=== PATIENT | female | born 1955 | race Native Hawaiian/Other Pacific Islander ===

== ENCOUNTER 2017-07-08 10:42 | Emergency (ER) | payer MEDICARE, OTHER ==
[~2017-07-08] VITALS: Ht 157.5 cm; Wt 122.5 kg
[2017-07-08 11:56] LABS: BASOPHILS # (AUTO) 0.1 10^3/uL (0.0-0.1); BASOPHILS % (AUTO) 1 % (0-10); EOSINOPHILS # (AUTO) 0.2 10^3/uL (0.0-0.3); EOSINOPHILS % (AUTO) 3 % (0-10); HEMATOCRIT 32 % (35-52); HEMOGLOBIN 10.7 G/DL (11.5-16.0); LYMPHOCYTES # (AUTO) 1.5 X 10^3 (1.0-4.0); LYMPHOCYTES % (AUTO) 17 % (12-44); MEAN CORPUSCULAR HEMOGLOBIN 32 PG (25-34); MEAN CORPUSCULAR HGB CONC 34 G/DL (32-36); MEAN CORPUSCULAR VOLUME 94 FL (80-99); MEAN PLATELET VOLUME 9.1 FL (7.4-10.4); MONOCYTES # (AUTO) 0.9 X 10^3 (0.0-1.0); MONOCYTES % (AUTO) 11 % (0-12); NEUTROPHILS % (AUTO) 69 % (42-75); PLATELET COUNT 408 10^3/uL (130-400); RED BLOOD COUNT 3.38 10^6/uL (4.35-5.85); RED CELL DISTRIBUTION WIDTH 12.4 % (10.0-14.5); WHITE BLOOD COUNT 8.7 10^3/uL (4.3-11.0)
[2017-07-08 12:00] LABS: BILIRUBIN,URINE NEGATIVE (NEGATIVE); CLARITY,URINE CLEAR; COLOR,URINE YELLOW; GLUCOSE, URINE (UA) NEGATIVE (NEGATIVE); KETONES,URINE NEGATIVE (NEGATIVE); LEUKOCYTE ESTERASE ,URINE 3+ (NEGATIVE); NITRITE,URINE NEGATIVE (NEGATIVE); PH,URINE 6 (5-9); PROTEIN,URINE 1+ (NEGATIVE); UROBILINOGEN,URINE NORMAL (NORMAL)
[2017-07-08 12:09] LABS: ALANINE AMINOTRANSFERASE 9 U/L (0-55); ALBUMIN 3.6 GM/DL (3.2-4.5); ALKALINE PHOSPHATASE 63 U/L (40-136); BILIRUBIN,TOTAL 0.5 MG/DL (0.1-1.0); BUN/CREATININE RATIO 12; CALCIUM 9.8 MG/DL (8.5-10.1); CARBON DIOXIDE 19 MMOL/L (21-32); CHLORIDE 104 MMOL/L (98-107); CREATININE SERUM 0.78 MG/DL (0.60-1.30); GFR ESTIMATED > 60; GLUCOSE 128 MG/DL (70-105); POTASSIUM 4.4 MMOL/L (3.6-5.0); SODIUM 136 MMOL/L (135-145); TOTAL PROTEIN 7.6 GM/DL (6.4-8.2)
[2017-07-08 12:10] LABS: BACTERIA,URINE TRACE /HPF; RBC,URINE >100 /HPF; WBC,URINE 25-50 /HPF
--- NOTE | 2017-07-08 12:41 | ED GU-Female ---
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 RATES PAIN 9/10 WHEN STANDING UP. PT STATES WENT THRU MENOPAUSE AT 52. Nursing Sepsis Screen: No Definite Risk Source: patient, family Exam Limitations: no limitations History of Present Illness Date Seen by Provider: Jul 08, 2017 Time Seen by Provider: 12:40 Timing/Duration: other Severity/Quality: mild, moderate Location: suprapubic Radiation: none Activities at Onset: none Sexual [place] History: not active Allergies and Home Medications Allergies Coded Allergies: No Known Drug Allergies (Unverified , 07/08/17) Home Medications No Active Prescriptions or Reported Meds Patient Home Medication List Home Medication List Reviewed: Yes Review of Systems Constitutional: see HPI EENTM: no symptoms reported Respiratory: no symptoms reported Cardiovascular: no symptoms reported Gastrointestinal: no symptoms reported Musculoskeletal: no symptoms reported Skin: no symptoms reported Psychiatric/Neurological: No Symptoms Reported Endocrine: No Symptoms Reported Hematologic/Lymphatic: No Symptoms Reported Past Ejmzfaf-Iegvji-Uulxim Hx Patient Social History Alcohol Use: Denies Use Recreational Drug Use: No Smoking Status: Never a Smoker Recent Foreign Travel: No Contact w/Someone Who Travel: No Recent Infectious Disease Expo: No Recent Hopitalizations: No Physical Abuse: No Sexual Abuse: No Seasonal Allergies Seasonal Allergies: No Past Medical History Nursing Suicide Risk Score: 0 Physical Exam Vital Signs Vital Signs - First Documented 07/08/17 10:55 Temp 97.4 Pulse 76 Resp 18 B/P (MAP) 132/78 (96) Pulse Ox 98 Capillary Refill : Less Than 3 Seconds General Appearance: other (obese) Neck: full range of motion Cardiovascular: normal peripheral pulses, regular rate, rhythm, no edema, no gallop, no JVD, no murmur Respiratory: chest non-tender, lungs clear, normal breath sounds, no respiratory distress, no accessory muscle use, respiratory distress Gastrointestinal: normal bowel sounds, other (2 confluent blisters to the left of midline and midway between the umbilicus and pubis as a result of hot pad) Back: no CVA tenderness Extremities: normal range of motion, non-tender, normal inspection, no pedal edema, no calf tenderness, normal capillary refill, pelvis stable 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, no motor/sensory deficits, alert, normal mood/affect, oriented x 3 Skin: normal color, warm/dry, cyanosis, cool, diaphoresis, pallor Lymphatic: no adenopathy Progress/Results/Core Measures Suspected Sepsis Recent Fever Within 48 Hours: No Infection Criteria Present: None New/Unexplained Altered Menta: No Sepsis Screen: No Definite Risk SIRS Temperature:97.4 Pulse: 76 Respiratory Rate: 18 Laboratory Tests 07/08/17 11:00: White Blood Count 8.7 Blood Pressure 132 /78 Mean: 96 Laboratory Tests 07/08/17 11:00: Creatinine 0.78, Platelet Count 408H, Total Bilirubin 0.5 Results/Orders Lab Results Laboratory Tests Test 07/08/17 11:00 07/08/17 11:55 Range/Units White Blood Count 8.7 4.3-11.0 10^3/uL Red Blood Count 3.38 L 4.35-5.85 10^6/uL Hemoglobin 10.7 L 11.5-16.0 G/DL Hematocrit 32 L 35-52 % Mean Corpuscular Volume 94 80-99 FL Mean Corpuscular Hemoglobin 32 25-34 PG Mean Corpuscular Hemoglobin Concent 34 32-36 G/DL Red Cell Distribution Width 12.4 10.0-14.5 % Platelet Count 408 H 130-400 10^3/uL Mean Platelet Volume 9.1 7.4-10.4 FL Neutrophils (%) (Auto) 69 42-75 % Lymphocytes (%) (Auto) 17 12-44 % Monocytes (%) (Auto) 11 0-12 % Eosinophils (%) (Auto) 3 0-10 % Basophils (%) (Auto) 1 0-10 % Neutrophils # (Auto) 6.0 1.8-7.8 X 10^3 Lymphocytes # (Auto) 1.5 1.0-4.0 X 10^3 Monocytes # (Auto) 0.9 0.0-1.0 X 10^3 Eosinophils # (Auto) 0.2 0.0-0.3 10^3/uL Basophils # (Auto) 0.1 0.0-0.1 10^3/uL Sodium Level 136 135-145 MMOL/L Potassium Level 4.4 3.6-5.0 MMOL/L Chloride Level 104 98-107 MMOL/L Carbon Dioxide Level 19 L 21-32 MMOL/L Anion Gap 13 5-14 MMOL/L Blood Urea Nitrogen 9 7-18 MG/DL Creatinine 0.78 0.60-1.30 MG/DL Estimat Glomerular Filtration Rate > 60 BUN/Creatinine Ratio 12 Glucose Level 128 H 70-105 MG/DL Calcium Level 9.8 8.5-10.1 MG/DL Total Bilirubin 0.5 0.1-1.0 MG/DL Aspartate Amino Transf (AST/SGOT) 26 5-34 U/L Alanine Aminotransferase (ALT/SGPT) 9 0-55 U/L Alkaline Phosphatase 63 40-136 U/L Total Protein 7.6 6.4-8.2 GM/DL Albumin 3.6 3.2-4.5 GM/DL Urine Color YELLOW Urine Clarity CLEAR Urine pH 6 5-9 Urine Specific [place] 1.020 1.016-1.022 Urine Protein 1+ H NEGATIVE Urine Glucose (UA) NEGATIVE NEGATIVE Urine Ketones NEGATIVE NEGATIVE Urine Nitrite NEGATIVE NEGATIVE Urine Bilirubin NEGATIVE NEGATIVE Urine Urobilinogen NORMAL NORMAL MG/DL Urine Leukocyte Esterase 3+ H NEGATIVE Urine RBC (Auto) 5+ H NEGATIVE Urine RBC >100 H /HPF Urine WBC 25-50 H /HPF Urine Squamous Epithelial Cells 5-10 /HPF Urine Crystals NONE /LPF Urine Bacteria TRACE /HPF Urine Casts NONE /LPF Urine Mucus SMALL H /LPF Urine Culture Indicated YES My Orders Orders - ELGIN COMBS MD Cbc With Automated Diff (07/08/17 11:49) Comprehensive Metabolic Panel (07/08/17 11:49) Ua Culture If Indicated (07/08/17 11:49) Ua Culture If Indicated (07/08/17 11:50) Urine Culture (07/08/17 11:55) Ct Abdomen/Pelvis W (07/08/17 13:37) Iohexol Injection (Omnipaque 350 Mg/Ml 1 (07/08/17 14:00) Ns (Ivpb) (Sodium Chloride 0.9% Ivpb Bag (07/08/17 14:00) Us Non Ob Pelvis Comp/Transvag (07/08/17 12:42) Rocephin 1 Gm Iv (1 X Dose) (07/08/17 14:45) Medications Given in ED Current Medications Medications Dose Ordered Sig/Patrizia Route Start Time Stop Time Status Last Admin Dose Admin Iohexol 100 ml ONCE ONCE IV 07/08/17 14:00 07/08/17 14:01 DC 07/08/17 14:07 100 ML Sodium Chloride 100 ml ONCE ONCE IV 07/08/17 14:00 07/08/17 14:01 DC 07/08/17 14:07 100 ML Vital Signs/I&O 07/08/17 10:55 Temp 97.4 Pulse 76 Resp 18 B/P (MAP) 132/78 (96) Pulse Ox 98 Capillary Refill : Less Than 3 Seconds Blood Pressure Mean: 96 Departure Communication (Admissions) The pelvic sonogram showed the uterus to be enlarged and the endometrium to be grossly thickened. In addition there was an ill-defined mass above the uterus. Therefore a CT scan of abdomen and pelvis with contrast was ordered. This demonstrated a large and ominous mass to the left and above the level of the uterus. The findings were discussed with Dr. Benavidez from general surgery, Dr. Leticia Phelps from gynecology and Dr. Rodriguez from radiology. The final conclusion was that she would be seen by Dr. Phelps on Sunday at her office. This was to be done at 0815. The initial plan would be for biopsy of the endometrium. As there was pus in the urine I will treat as a UTI. And Dr. Phelps asked that we start her on oral iron supplements Impression Primary Impression: pelvic mass Disposition: HOME, SELF-CARE Condition: Stable/Unchanged Departure-Patient Inst. Decision time for Depature: 14:49 Referrals: NO,LOCAL PHYSICIAN (PCP) Primary Care Physician Patient Instructions: No Instuctions Given Add. Discharge Instructions: All discharge instructions reviewed with patient and/or family. Voiced understanding. You are to have an appointment with Dr. Leticia Phelps at 0815 on 07/13. In addition I have prescribed an antibiotic and some iron which appeared to begin tomorrow. A pain medicine has been provided as well. Scripts Tramadol HCl (Tramadol HCl) 50 Mg Tablet 50 MG PO 4 times a day, #20 TAB Prov: ELGIN COMBS MD 07/08/17 Iron Ag,Ps/C/Fa6/B12/Zn/SA/Sto (Niferex Tablet) 1 Each Tablet 1 EACH PO DAILY, #30 TAB Prov: ELGIN COMBS MD 07/08/17 Cefdinir (Cefdinir) 300 Mg Capsule 300 MG PO twice a day, #10 CAP Prov: ELGIN COMBS MD 07/08/17 ELGIN COMBS MD Jul 08, 2017 12:41
[2017-07-08] MEDS ORDERED: IOHEXOL 350 MG/ML 100 ML (OMNIPAQUE 350) VIAL IV ONE (14:00)
[2017-07-08] MEDS ORDERED: NS 100 ML (IVPB) BAG IV ONE (14:00)
--- NOTE | 2017-07-08 14:13 | Diagnostic Imaging Report ---
INDICATION: Pain, postmenopausal bleeding COMPARISON: None available. Technique: Transabdominal transvaginal pelvic ultrasound was performed on July 08, 2017. Findings: The uterus measures 13.3 x 7.0 cm. The endometrium is abnormally thickened measuring 3.1 cm. Some fluid is identified within the endometrial cavity. The bilateral ovaries were unable to be visualized. A heterogeneous mass lesion is identified superior to the uterus measuring 11.3 x 9.3 x 8.7 cm. This is only seen on transabdominal imaging. IMPRESSION: Heterogeneous round lesion superior to the uterus. This is of uncertain etiology. This could relate to an exophytic uterine fibroid. However, ovarian mass lesion or additional mass lesion would be an additional consideration. Recommend a CT of the abdomen and pelvis with contrast for further evaluation. Abnormally thickened endometrium measuring over 3 cm. Given patient's age and provided history, this could relate to endometrial hyperplasia, polyp, or even malignancy. Tissue sampling is recommended. Nonvisualization of the bilateral ovaries. Dictated by: Dictated on workstation # [id number]
[2017-07-08] MEDS ORDERED: cefTRIAXone INJECTION 1,000 MG in NS (IVPB) 50 ML IV ONE (14:45)
[2017-07-08] MEDS ORDERED: TRAM50TA2 PO (14:53)
[2017-07-08] MEDS ORDERED: CEFD300C3 PO (14:53)
[2017-07-08] MEDS ORDERED: IRON-17 PO (14:53)
--- NOTE | 2017-07-08 15:00 | Diagnostic Imaging Report ---
PROCEDURE: CT abdomen and pelvis with contrast. TECHNIQUE: Multiple contiguous axial images were obtained through the abdomen and pelvis after administration of intravenous contrast. INDICATION: Abdominal pain. There are no previous CT examinations available for comparison. FINDINGS: The pelvic ultrasound exam performed earlier today did note a heterogeneous mass superior to the uterus measuring 11.3 x 9.3 x 8.7 cm. That finding is again evident on this study. This area measures 8.9 x 11.7 x 10.6 cm in maximum AP, transverse and longitudinal dimensions. This appears to be separate from the uterus and I suspect that this is a mass perhaps arising from the left ovary. Also, as noted on the prior exam, there is marked thickening of the endometrium of the uterus and into the lower uterine segment. The possibility that this is related to a malignancy involving either the endometrium or the cervix should certainly be considered. There are also a few small periaortic nodes on the left. The largest of these measures 1.3 cm. These may be involved by neoplastic disease as well. There is no other pelvic mass visualized. The urinary bladder shows only a small amount of urine within the bladder. Consequently, the bladder is difficult to assess. There may be an 8 mm bladder calculus, however. The appendix was not well identified but there are no indirect signs of acute appendicitis. The liver, spleen, pancreas, adrenals, gallbladder, kidneys, aorta and inferior vena cava are unremarkable for an acute abnormality. The stomach is not well distended and consequently difficult to assess. The lung bases are generally clear. The heart is mildly enlarged. There is no obvious breast mass. The bone windows show no sign of a fracture or of a destructive lesion. IMPRESSION: 1. The large mass superior to the uterine fundus on left seen on the ultrasound exam is again identified. This finding is of uncertain etiology but should be considered neoplastic until proven otherwise. 2. There is also marked irregularity of the endometrium of the uterus. The possibility that there is malignancy involving the endometrium or cervix should certainly be considered. There also appeared to be a few small periaortic nodes on the left. 3. There is no acute abnormality of the abdomen or pelvis noted otherwise. 4. These results will be discussed with Dr. Alcocer in the ER. Dictated by: Dictated on workstation # [id number]
[2017-07-08 15:59] VITALS: BP 119/63
== END 2017-07-08 15:59 | disposition home or self-care (01) ==
LOC: ER 10:50
DX: R19.00 Intra-abdominal and pelvic swelling, mass and lump, unspecified site (principal)
CPT/HCPCS: 36415; 74177; 76830; 76856; 80053; 81000; 85025; 86304; 87088; 96365